=== PATIENT | male | born 1965 | race Hispanic/Latino ===

== ENCOUNTER 2024-02-16 10:28 | Day surgery (SDC) | payer OTHER ==
[2024-02-13 13:40] VITALS: BP 133/67; PULSE 83; RESP 18
[2024-02-13 13:40] LABS: BASOPHILS # (AUTO) 0.05 K/uL (0.00-0.20); BASOPHILS % (AUTO) 1.1 % (0.0-5.0); EOSINOPHILS % (AUTO) 4.4 % (0.0-8.0); HEMATOCRIT 36.2 % (42-54); IMMATURE GRANULOCYTE ABSOLUTE 0.02 K/uL (0-1); LYMPHOCYTES # (AUTO) 0.9 K/uL (1.0-4.8); LYMPHOCYTES % (AUTO) 20.5 % (21.0-51.0); MEAN CORPUSCULAR HEMOGLOBIN 28.2 pg (27.0-33.0); MEAN CORPUSCULAR HGB CONC 32.6 g/dL (32.0-36.0); MEAN CORPUSCULAR VOLUME 86.6 fL (79-99); MONOCYTES # (AUTO) 0.5 K/uL (0.1-1.0); MONOCYTES % (AUTO) 10.4 % (3.0-13.0); NEUTROPHILS # (AUTO) 2.9 K/uL (1.8-7.7); NEUTROPHILS % (AUTO) 63.2 % (40.0-77.0); PLATELET COUNT (AUTO) 217 K/uL (130-400); RED BLOOD CELL COUNT(AUTO) 4.18 MIL/uL (4.50-6.20); RED CELL DISTRIBUTION WIDTH 14.4 % (11.0-15.5); WHITE BLOOD COUNT (AUTO) 4.5 K/uL (4.8-10.8)
[2024-02-13 13:50] LABS: INR 2.94 (0.85-1.15); PROTHROMBIN TIME 29.3 SEC (9.6-11.6)
[2024-02-13 13:51] LABS: PARTIAL THROMBOPLASTIN TIME 48.9 SEC (26.3-35.5)
[2024-02-13 15:25] LABS: CREATININE 2.1 mg/dL (0.5-1.3); POTASSIUM 5.1 mmol/L (3.5-5.1)
[~2024-02-16] VITALS: Ht 193 cm; Wt 103.2 kg
[2024-02-16] VITALS (7 sets, daily range): BP systolic 144–159; BP diastolic 72–77; PULSE 67–78; RESP 14–16
[~2024-02-16 10:28] MED LIST: ACET325T51 PO; AMOX500C2 PO; CARB-38 PO; CARB-39 PO; CYCL5TAB PO; DULO60CA64 PO; EMPA1TAB7 PO; GABA600T10 PO; GLIP5TAB15 PO; INSU3INS3 SQ; LEVA15HF3 IH; MONT-39 PO; PRED5DRO25 OP; PRIM50TA23 PO; RAMI5CAP72 PO; ROPI0.5T37 PO; ROSU10TA72 PO; SEMA1PEN3 SQ; VITA1CAP85 PO; WARF-57 PO; WARF7.5T49 PO
[2024-02-16 11:11] LABS: CREATININE 1.8 mg/dL (0.5-1.3); POTASSIUM 5.4 mmol/L (3.5-5.1)
[2024-02-16 11:22] LABS: INR 1.71 (0.85-1.15); PROTHROMBIN TIME 17.6 SEC (9.6-11.6)
[2024-02-16] MEDS ORDERED: IOHEXOL-350 50ML VIAL IV ONE (12:08)
[2024-02-16] MEDS ORDERED: LIDOCAINE HCL 400MG/20ML VIAL ONE (12:08)
[2024-02-16] MEDS ORDERED: IOHEXOL 350 MG/ML 100ML INFUS..BTL IV ONE (12:08)
[2024-02-16] MEDS ORDERED: BIVALIRUDIN 250 MG/VIAL IV ONE (12:08)
[2024-02-16] MEDS ORDERED: HEPARIN 10,000 UNIT/10ML (1,000 UNIT/ML) VIAL ONE (12:09)
[2024-02-16] MEDS ORDERED: ONDANSETRON 4MG INJ ONE (12:09)
[2024-02-16] MEDS ORDERED: NITROGLYCERIN 50MG VIAL ONE (12:16)
[2024-02-16] MEDS ORDERED: FENTANYL CITRATE PF 50 MCG/1 ML 2ML VIAL ONE (12:21)
[2024-02-16] MEDS ORDERED: MIDAZOLAM HCL 1 MG/ML 2ML VIAL ONE (12:22)
[2024-02-16] MEDS ORDERED: DEXTROSE 50%-WATER 50 ML DISP.SYRIN IV PRN (13:30)
[2024-02-16] MEDS ORDERED: 0.9%NACL 1000ML 1,000 ML IV SCH (13:30)
[2024-02-16] MEDS ORDERED: INSULIN HUMULIN R 100 UNIT/ML 3ML SQ SCH (16:30)
== END 2024-02-16 16:05 | disposition home or self-care (01) ==
LOC: DAH 10:28
PROVIDERS: ATTEND Internal Medicine Cardiovascular Disease
DX: R06.02 Shortness of breath (principal); I70.223 Atherosclerosis of native arteries of extremities with rest pain, bilateral legs; I25.10 Atherosclerotic heart disease of native coronary artery without angina pectoris; I48.91 Unspecified atrial fibrillation; Z90.49 Acquired absence of other specified parts of digestive tract; I10 Essential (primary) hypertension; I35.9 Nonrheumatic aortic valve disorder, unspecified; Q87.418 Marfan syndrome with other cardiovascular manifestations; Z79.4 Long term (current) use of insulin; Z79.899 Other long term (current) drug therapy
CPT/HCPCS: 80048 ×2; 85025; 85610 ×2; 85730; 36415 ×2; 93005; 93454; 82948 ×2; 75710; 36245; C1894; C1760; Q9965; J3010; J3490 ×2; J2250; J2405; J1644; A4215; A4222; A4221; A4663; A4216; A4606; A4223 ×3; 96360; 96361; 99156; 99157; J0583; Q9967

== ENCOUNTER → 2024-05-12 | Outpatient (CLI) | payer OTHER ==
[~2024-05-12] MED LIST changes: +GABA-1405 PO; -GABA600T10 PO
== END | disposition home or self-care (01) ==
LOC: RAH 09:29
PROVIDERS: ATTEND Internal Medicine Pulmonary Disease
DX: J98.6 Disorders of diaphragm (principal); J98.11 Atelectasis
CPT/HCPCS: 76000

== ENCOUNTER 2024-08-11 06:47 | Day surgery (SDC) | payer OTHER ==
[~2024-08-11] VITALS: Ht 195.6 cm; Wt 103.0 kg
[2024-08-11] VITALS (14 sets, daily range): BP systolic 101–152; BP diastolic 56–77; PULSE 65–89; RESP 14–18; TEMP 97.7–98.3
[~2024-08-11 06:47] MED LIST changes: +ACET-3859 PO; -ACET325T51 PO; -CYCL5TAB PO; +CYCL5TAB3 PO
[2024-08-11] MEDS ORDERED: CARB-336 PO (07:48)
[2024-08-11] MEDS ORDERED: COUMADIN PO (07:56)
[2024-08-11] MEDS ORDERED: FLEXERIL PO (07:56)
[2024-08-11] MEDS ORDERED: GABA300C PO (07:56)
[2024-08-11] MEDS ORDERED: LACT10SO85 PO (08:00)
[2024-08-11] MEDS ORDERED: ALBU18HF7 IH (08:00)
[2024-08-11] MEDS ORDERED: ASCO500T20 PO (08:00)
[2024-08-11] MEDS ORDERED: KETO-99 OP (08:00)
[2024-08-11] MEDS ORDERED: INSU100C14 SQ (08:00)
[2024-08-11] MEDS ORDERED: DOCU-116 PO (08:00)
[2024-08-11] MEDS: DEXTROSE 50%-WATER 50 ML DISP.SYRIN IV ONE (08:07)
[2024-08-11] MEDS: 0.9%NACL 1000ML 1,000 ML IV ONE (08:07)
[2024-08-11] MEDS ORDERED: proPOFol 10 MG/ML 20ML VIAL IV ONE ×2 (09:22→09:27)
--- NOTE | 2024-08-11 11:57 | NUR ---
FULL AND COMPLETE DISCHARGE INSTRUCTIONS PROVIDED BOTH VERBALLY AND IN WRITING. ALL QUESTIONS ANSWERED. VOICED UNDERSTANDING TO GI PROCEDURE AND FOLLOW UP. Patient adamantly declined repeat Colonoscopy tomorrow. He stated he will call to reschedule. PIV REMOVED WITH CATHETER TIP INTACT. W/C WITH FAMILY TO POV TO HOME.
== END 2024-08-11 11:25 | disposition home or self-care (01) ==
LOC: ENDO 06:47 → DAH 06:47 → ENDO 11:25
PROVIDERS: ATTEND Internal Medicine Gastroenterology
DX: Z12.11 Encounter for screening for malignant neoplasm of colon (principal); R13.10 Dysphagia, unspecified; K29.70 Gastritis, unspecified, without bleeding; K21.00 Gastro-esophageal reflux disease with esophagitis, without bleeding; I10 Essential (primary) hypertension; F41.8 Other specified anxiety disorders; E11.9 Type 2 diabetes mellitus without complications; M81.0 Age-related osteoporosis without current pathological fracture; M19.90 Unspecified osteoarthritis, unspecified site; Z98.49 Cataract extraction status, unspecified eye; Z86.0101 Personal history of adenomatous and serrated colon polyps; Z86.2 Personal history of diseases of the blood and blood-forming organs and certain disorders involving the immune mechanism; Z95.2 Presence of prosthetic heart valve; Z87.898 Personal history of other specified conditions; Z79.899 Other long term (current) drug therapy; Z90.49 Acquired absence of other specified parts of digestive tract; Z86.0100 Personal history of colon polyps, unspecified
CPT/HCPCS: 43239; 82948 ×2; 43248; 45378; J7030; J7070; J2704 ×2; A4620; A4215; J3490

== ENCOUNTER 2024-09-01 05:56 | Day surgery (SDC) | payer OTHER ==
[2024-09-01] VITALS (11 sets, daily range): BP systolic 146–163; BP diastolic 72–80; PULSE 72–79; RESP 13–17; TEMP 97–98.1
[~2024-09-01] VITALS: Ht 195.6 cm; Wt 104.3 kg
[~2024-09-01 05:56] MED LIST changes: -ACET-3859 PO; +ALBU18HF7 IH; +ASCO500T20 PO; +CARB-336 PO; -CARB-38 PO; -CARB-39 PO; +COUMADIN PO; -CYCL5TAB3 PO; +DOCU-116 PO; -DULO60CA64 PO; +FLEXERIL PO; -GABA-1405 PO; +GABA300C PO; -GLIP5TAB15 PO; +INSU100C14 SQ; +KETO-99 OP; +LACT10SO85 PO; -LEVA15HF3 IH; -PRED5DRO25 OP; -VITA1CAP85 PO; -WARF-57 PO; -WARF7.5T49 PO
[2024-09-01] MEDS ORDERED: 0.9%NACL 1000ML 1,000 ML IV ONE (06:04)
[2024-09-01] MEDS ORDERED: CARB-336 PO (06:52)
[2024-09-01] MEDS ORDERED: METF-444 PO (06:52)
[2024-09-01] MEDS ORDERED: PANT40TA54 PO (06:53)
[2024-09-01] MEDS ORDERED: ESCI-8 PO (06:54)
[2024-09-01] MEDS ORDERED: DULO60CA64 PO (06:54)
[2024-09-01] MEDS ORDERED: MIRA50TA PO (06:55)
[2024-09-01] MEDS: 0.9%NACL 1000ML 1,000 ML IV ONE (06:57)
[2024-09-01] MEDS ORDERED: proPOFol 10 MG/ML 20ML VIAL IV ONE ×2 (07:28→07:53)
--- NOTE | 2024-09-01 09:15 | NUR ---
Full and complete Discharge Instructions given to Patient and Family both verbally and in writing.. All questions answered.Voiced understanding to GI procedure precautions and Follow Up. PIV removed with catheter tip intact. Denies c/o pain or discomfort. W/C to POV with Family to home.
== END 2024-09-01 09:24 | disposition home or self-care (01) ==
LOC: SUH 05:56 → DAH 05:56 → SUH 09:24
PROVIDERS: ATTEND Internal Medicine Gastroenterology
DX: Z09 Encounter for follow-up examination after completed treatment for conditions other than malignant neoplasm (principal); D12.5 Benign neoplasm of sigmoid colon; K62.1 Rectal polyp; R13.10 Dysphagia, unspecified; Z86.0101 Personal history of adenomatous and serrated colon polyps; F41.9 Anxiety disorder, unspecified; F32.A Depression, unspecified; K22.9 Disease of esophagus, unspecified; M81.0 Age-related osteoporosis without current pathological fracture; M19.90 Unspecified osteoarthritis, unspecified site; I12.9 Hypertensive chronic kidney disease with stage 1 through stage 4 chronic kidney disease, or unspecified chronic kidney disease; E11.22 Type 2 diabetes mellitus with diabetic chronic kidney disease; N18.9 Chronic kidney disease, unspecified; Z90.49 Acquired absence of other specified parts of digestive tract; Z98.890 Other specified postprocedural states; Z98.49 Cataract extraction status, unspecified eye; Z79.899 Other long term (current) drug therapy; Z53.8 Procedure and treatment not carried out for other reasons
CPT/HCPCS: 45380; 45385; 82948 ×2; J7030 ×3; J2704 ×2; A4620; A4215 ×2; A4223; A4222; A4221; A4663; A4606; J3490